=== PATIENT | male | born 1935 | race Hispanic/Latino ===

== ENCOUNTER 2021-10-24 10:07 | Inpatient (IN) | payer MEDICARE ==
[~2021-10-24] VITALS: Ht 177.8 cm; Wt 84.8 kg
[2021-10-24] MEDS: SODIUM CHLORIDE 0.9% 1000ML 1,000 ML IV SCH ×2 (01:30→14:01)
[2021-10-24 11:20] LABS: BASOPHILS % 0.1 % (0.0-1.0); HEMATOCRIT 44.9 % (38.2-49.6); HEMOGLOBIN 14.7 g/dL (14.0-18.0); LYMPHOCYTES # (AUTO) 0.5 (1.0-3.2); LYMPHOCYTES % 5.9 % (18.0-39.1); MEAN CORPUSCULAR HEMOGLOBIN 28.3 pg (28-32); MEAN CORPUSCULAR HGB CONC 32.7 g/dL (31-35); MEAN CORPUSCULAR VOLUME 86.5 fL (81-99); MONOCYTES # (AUTO) 0.4 (0.2-0.8); MONOCYTES % 4.6 % (4.4-11.3); NEUTROPHILS # (AUTO) 7.5 (2.1-6.9); NEUTROPHILS % 88.5 % (38.7-80.0); PLATELET COUNT 129 x10e3/uL (140-360); RED BLOOD COUNT 5.19 x10e6/uL (4.3-5.7); RED CELL DISTRIBUTION WIDTH 15.4 % (11.7-14.4)
[2021-10-24] MEDS ORDERED: FUROSEMIDE40 MG PO (11:31)
[2021-10-24] MEDS ORDERED: JANUVIA100 MG PO (11:31)
[2021-10-24] MEDS ORDERED: DOXAZOSIN MESYLA2 MG PO (11:31)
[2021-10-24] MEDS ORDERED: POTASSIUM CITR10 MEQ PO (11:31)
[2021-10-24] MEDS ORDERED: LOVASTATIN20 MG PO (11:31)
[2021-10-24] MEDS ORDERED: PIOGLITAZONE HC15 MG PO (11:31)
[2021-10-24] MEDS ORDERED: GLIPIZIDE5 MG PO (11:31)
[2021-10-24] MEDS ORDERED: FINASTERIDE5 MG PO (11:31)
[2021-10-24] MEDS ORDERED: ALLOPURINOL100 MG PO (11:31)
[2021-10-24 11:33] LABS: ALBUMIN 3.6 g/dL (3.5-5.0); ALBUMIN/GLOBULIN RATIO 0.9 (0.8-2.0); ANION GAP 23.4 mmol/L (8-16); CALCIUM 9.1 mg/dL (8.4-10.2); CREATININE, SERUM 1.62 mg/dL (0.72-1.25); POTASSIUM 3.4 mmol/L (3.5-5.1)
[2021-10-24] MEDS ORDERED: SODIUM CHLORIDE 0.9% 1000ML 1,000 ML IV STA (11:41)
[2021-10-24] MEDS ORDERED: CEFEPIME 2 GM in SODIUM CHLORIDE 0.9% 100 ML IV ONE (11:45)
[2021-10-24] MEDS ORDERED: SODIUM CHLORIDE 0.9% 500ML 500 ML IV ONE (11:45)
[2021-10-24 11:52] LABS: CLARITY,URINE CLEAR (CLEAR); COLOR,URINE YELLOW (YELLOW); LEUKOCYTE ESTERASE ,URINE NEGATIVE (NEGATIVE); NITRITE,URINE NEGATIVE (NEGATIVE); PROTEIN,URINE DIPSTICK 1+ (NEGATIVE)
[2021-10-24 11:53] LABS: KETONES,URINE TRACE (NEGATIVE); URINE UROBILINOGEN 0.2 mg/dL (0.2 - 1)
[2021-10-24 11:54] LABS: BACTERIA,URINE FEW /HPF; RBC,URINE 0-5 /HPF (0-5); WBC,URINE (MAN) 0-5 /HPF (0-5)
[2021-10-24 12:12] LABS: CREATINE KINASE MB 3.3 ng/mL (0-5.0)
[2021-10-24] MEDS ORDERED: ENOXAPARIN SOD INJ 40 MG/0.4 ML SYR SC STA (13:00)
[2021-10-24] MEDS ORDERED: ASPIRIN 81 MG CHEW TAB PO ONE (13:00)
[2021-10-24] MEDS ORDERED: ONDANSETRON HCL INJ 2MG/ML 2ML 2 MG/ML VIAL IV PRN (13:15)
[2021-10-24] MEDS: DEXAMETHASONE SOD PHOS 10 MG/1 ML VIAL IV SCH (13:15)
[2021-10-24] MEDS ORDERED: DEXTROSE 50% SYRINGE 50 ML IV PRN (13:15)
[2021-10-24] MEDS: ASPIRIN 81 MG ENTERIC COATED PO SCH (13:15)
[2021-10-24] MEDS: ASCORBIC ACID 500 MG TAB PO SCH (13:15)
[2021-10-24] MEDS: FAMOTIDINE 20 MG/2 ML VIAL IV SCH (13:33)
[2021-10-24 13:39] LABS: ABG HCO3 18 mmol/L (22-26); ABG PCO2 27 mmHg (35-45); ABG PH 7.43 (7.35-7.45); ABG PO2 61 mmHg (80-105); ABG TCO2 19
[2021-10-24] MEDS: INSULIN LISPRO 100 UNIT/1 ML 3ML VIAL SQ SCH ×5 (14:08→20:59)
[2021-10-24 17:23] LABS: CREATINE KINASE MB 3.4 ng/mL (0-5.0)
[2021-10-24] MEDS: ACETAMINOPHEN 325 MG TAB PO PRN (18:28)
[2021-10-24] MEDS: CEFEPIME 1 GM in SODIUM CHLORIDE 0.9% 50ML 50 ML IV SCH (20:45)
[2021-10-24] MEDS ORDERED: POTASSIUM CHLORIDE 20 MEQ TAB CR PO STA (21:39)
[2021-10-24] MEDS ORDERED: THIAMINE HCL 100 MG TAB PO ONE (21:45)
[2021-10-24] MEDS ORDERED: HYDRALAZINE HCL 20 MG/ML VIAL IV PRN (21:45)
[2021-10-24] MEDS ORDERED: MELATONIN 3 MG TAB PO PRN (21:45)
[2021-10-25 00:01] LABS: CREATINE KINASE MB 3.1 ng/mL (0-5.0)
[2021-10-25] MEDS: FAMOTIDINE 20 MG/2 ML VIAL IV SCH ×2 (01:30→14:30)
[2021-10-25 05:32] LABS: BASOPHILS % 0.1 % (0.0-1.0); LYMPHOCYTES # (AUTO) 0.7 (1.0-3.2); MEAN CORPUSCULAR HEMOGLOBIN 28.1 pg (28-32); MEAN CORPUSCULAR HGB CONC 32.5 g/dL (31-35); MEAN CORPUSCULAR VOLUME 86.4 fL (81-99); MONOCYTES # (AUTO) 0.3 (0.2-0.8); MONOCYTES % 2.3 % (4.4-11.3); NEUTROPHILS # (AUTO) 9.9 (2.1-6.9); NEUTROPHILS % 90.8 % (38.7-80.0); PLATELET COUNT 135 x10e3/uL (140-360); RED BLOOD COUNT 4.63 x10e6/uL (4.3-5.7); RED CELL DISTRIBUTION WIDTH 15.8 % (11.7-14.4)
[2021-10-25 06:42] LABS: ALBUMIN/GLOBULIN RATIO 0.8 (0.8-2.0); ANION GAP 16.3 mmol/L (8-16); CALCIUM 8.7 mg/dL (8.4-10.2); CHOL/HDL RATIO 4.1 (3.9-4.7); CREATININE, SERUM 1.17 mg/dL (0.72-1.25); POTASSIUM 3.3 mmol/L (3.5-5.1)
[2021-10-25 07:13] LABS: CREATINE KINASE MB 3.5 ng/mL (0-5.0)
[2021-10-25 07:29] LABS: MAGNESIUM 1.9 MG/DL (1.3-2.1); PHOSPHORUS 2.3 MG/DL (2.3-4.7)
[2021-10-25] MEDS: INSULIN LISPRO 100 UNIT/1 ML 3ML VIAL SQ SCH ×7 (07:30→21:00)
[2021-10-25] MEDS: SITAGLIPTIN 100 MG TAB PO SCH (08:08)
[2021-10-25] MEDS: CEFEPIME 1 GM in SODIUM CHLORIDE 0.9% 50ML 50 ML IV SCH ×2 (08:08→21:11)
[2021-10-25] MEDS: DEXAMETHASONE SOD PHOS 10 MG/1 ML VIAL IV SCH (08:08)
[2021-10-25] MEDS: DOCUSATE SODIUM 100 MG CAP PO SCH ×2 (08:08→17:19)
[2021-10-25] MEDS: MULTIVITAMINS/MINERALS TAB PO SCH (08:08)
[2021-10-25] MEDS: ACETAMINOPHEN 325 MG TAB PO PRN (08:09)
[2021-10-25] MEDS: ASCORBIC ACID 500 MG TAB PO SCH ×2 (08:09→17:19)
[2021-10-25] MEDS: FINASTERIDE 5 MG TAB PO SCH (08:09)
[2021-10-25] MEDS: ZINC SULFATE 50 MG CAP PO SCH (08:46)
[2021-10-25] MEDS ORDERED: FUROSEMIDE 40 MG TAB PO SCH (09:00)
[2021-10-25] MEDS ORDERED: REMDESIVIR 100MG 200 MG in SODIUM CHLORIDE 0.9% 100 ML IV ONE (09:00)
[2021-10-25] MEDS ORDERED: PIOGLITAZONE HCL 15 MG TAB PO SCH (09:00)
[2021-10-25] MEDS: POTASSIUM CITRATE ER 10 MEQ TAB PO SCH (09:26)
[2021-10-25] MEDS: DOXAZOSIN MESYLATE 2 MG TAB PO SCH (09:26)
[2021-10-25 09:38] LABS: FERRITIN 3521.88 ng/mL (21.81-274.66)
[2021-10-25] MEDS ORDERED: ENOXAPARIN SOD INJ 40 MG/0.4 ML SYR SC SCH (17:00)
[2021-10-25] MEDS: ENOXAPARIN SOD INJ 40 MG/0.4 ML SYR SC SCH (17:19)
[2021-10-25 17:56] LABS: CREATINE KINASE MB 9.2 ng/mL (0-5.0)
[2021-10-25 18:35] VITALS: BP 128/54
[2021-10-25 19:00] VITALS: BP 125/53
[2021-10-25] MEDS ORDERED: SODIUM CHLORIDE 0.9% 1000ML 1,000 ML ONE (19:48)
[2021-10-25 20:00] VITALS: BP 133/59
[2021-10-25] MEDS: SIMVASTATIN 20 MG TAB PO SCH (21:00)
[2021-10-25 22:00] VITALS: BP 130/55
[2021-10-26] VITALS (10 sets, daily range): BP systolic 104–149; BP diastolic 53–70
[2021-10-26] MEDS: FAMOTIDINE 20 MG/2 ML VIAL IV SCH ×2 (01:15→13:20)
[2021-10-26 06:50] LABS: BASOPHILS % 0.1 % (0.0-1.0); HEMATOCRIT 36.9 % (38.2-49.6); LYMPHOCYTES # (AUTO) 0.5 (1.0-3.2); LYMPHOCYTES % 4.3 % (18.0-39.1); MEAN CORPUSCULAR HEMOGLOBIN 28.3 pg (28-32); MEAN CORPUSCULAR HGB CONC 32.5 g/dL (31-35); MONOCYTES # (AUTO) 0.4 (0.2-0.8); MONOCYTES % 2.9 % (4.4-11.3); NEUTROPHILS # (AUTO) 11.4 (2.1-6.9); NEUTROPHILS % 91.8 % (38.7-80.0); PLATELET COUNT 137 x10e3/uL (140-360); RED BLOOD COUNT 4.24 x10e6/uL (4.3-5.7); RED CELL DISTRIBUTION WIDTH 15.9 % (11.7-14.4)
[2021-10-26 07:30] LABS: ALBUMIN 2.6 g/dL (3.5-5.0); ALBUMIN/GLOBULIN RATIO 0.8 (0.8-2.0); ANION GAP 16.9 mmol/L (8-16); CREATININE, SERUM 1.19 mg/dL (0.72-1.25)
[2021-10-26 07:33] LABS: POTASSIUM 2.9 mmol/L (3.5-5.1)
[2021-10-26 07:48] LABS: CALCIUM 8.2 mg/dL (8.4-10.2)
[2021-10-26] MEDS: SITAGLIPTIN 100 MG TAB PO SCH (09:00)
[2021-10-26] MEDS: REMDESIVIR 100MG 100 MG in SODIUM CHLORIDE 0.9% 100 ML IV SCH (09:58)
[2021-10-26] MEDS: CEFEPIME 1 GM in SODIUM CHLORIDE 0.9% 50ML 50 ML IV SCH ×2 (09:58→21:00)
[2021-10-26] MEDS: DOXAZOSIN MESYLATE 2 MG TAB PO SCH (09:58)
[2021-10-26] MEDS: ASPIRIN 81 MG ENTERIC COATED PO SCH (09:58)
[2021-10-26] MEDS: DEXAMETHASONE SOD PHOS 10 MG/1 ML VIAL IV SCH (09:58)
[2021-10-26] MEDS: DOCUSATE SODIUM 100 MG CAP PO SCH ×2 (09:58→17:35)
[2021-10-26] MEDS: FINASTERIDE 5 MG TAB PO SCH (09:59)
[2021-10-26] MEDS: POTASSIUM CITRATE ER 10 MEQ TAB PO SCH (09:59)
[2021-10-26] MEDS: MULTIVITAMINS/MINERALS TAB PO SCH (09:59)
[2021-10-26] MEDS: ZINC SULFATE 50 MG CAP PO SCH (09:59)
[2021-10-26] MEDS: ASCORBIC ACID 500 MG TAB PO SCH ×2 (09:59→17:35)
[2021-10-26] MEDS: SPIRONOLACTONE 25 MG TAB PO SCH (10:01)
[2021-10-26] MEDS: POTASSIUM CHLORIDE 20 MEQ TAB CR PO SCH ×2 (10:01→19:05)
[2021-10-26] MEDS: INSULIN LISPRO 100 UNIT/1 ML 3ML VIAL SQ SCH ×8 (10:02→21:00)
[2021-10-26] MEDS: ENOXAPARIN SOD INJ 40 MG/0.4 ML SYR SC SCH (17:35)
[2021-10-26] MEDS ORDERED: POTASSIUM CHLORIDE 20 MEQ TAB CR PO ONE (18:00)
[2021-10-26] MEDS: SIMVASTATIN 20 MG TAB PO SCH (21:00)
[2021-10-27] VITALS (11 sets, daily range): BP systolic 115–132; BP diastolic 55–77
[2021-10-27] MEDS: FAMOTIDINE 20 MG/2 ML VIAL IV SCH ×2 (01:50→13:15)
[2021-10-27 06:19] LABS: ALBUMIN 2.5 g/dL (3.5-5.0); ALBUMIN/GLOBULIN RATIO 0.8 (0.8-2.0); ANION GAP 17.8 mmol/L (8-16); CALCIUM 8.5 mg/dL (8.4-10.2); CREATININE, SERUM 1.14 mg/dL (0.72-1.25); POTASSIUM 3.8 mmol/L (3.5-5.1)
[2021-10-27] MEDS: INSULIN LISPRO 100 UNIT/1 ML 3ML VIAL SQ SCH ×8 (07:30→23:00)
[2021-10-27] MEDS: AZITHROMYCIN 250 MG TAB PO SCH (11:22)
[2021-10-27] MEDS: CEFEPIME 1 GM in SODIUM CHLORIDE 0.9% 50ML 50 ML IV SCH ×2 (11:23→21:57)
[2021-10-27] MEDS: DEXAMETHASONE SOD PHOS 10 MG/1 ML VIAL IV SCH (11:23)
[2021-10-27] MEDS: DOXAZOSIN MESYLATE 2 MG TAB PO SCH (11:24)
[2021-10-27] MEDS: CLOPIDOGREL BISULFATE 75 MG TAB PO SCH (11:25)
[2021-10-27] MEDS: DOCUSATE SODIUM 100 MG CAP PO SCH ×2 (11:25→18:34)
[2021-10-27] MEDS: ASCORBIC ACID 500 MG TAB PO SCH ×2 (11:25→18:34)
[2021-10-27] MEDS: ASPIRIN 81 MG ENTERIC COATED PO SCH (11:25)
[2021-10-27] MEDS: FINASTERIDE 5 MG TAB PO SCH (11:26)
[2021-10-27] MEDS: POTASSIUM CITRATE ER 10 MEQ TAB PO SCH (11:43)
[2021-10-27] MEDS: MULTIVITAMINS/MINERALS TAB PO SCH (11:43)
[2021-10-27] MEDS: ZINC SULFATE 50 MG CAP PO SCH (11:43)
[2021-10-27] MEDS: REMDESIVIR 100MG 100 MG in SODIUM CHLORIDE 0.9% 100 ML IV SCH (11:44)
[2021-10-27] MEDS: SITAGLIPTIN 100 MG TAB PO SCH (11:49)
[2021-10-27] MEDS: SPIRONOLACTONE 25 MG TAB PO SCH (11:50)
[2021-10-27] MEDS: ENOXAPARIN SOD INJ 40 MG/0.4 ML SYR SC SCH (18:34)
[2021-10-27] MEDS: SIMVASTATIN 20 MG TAB PO SCH (21:32)
[2021-10-27] MEDS: ACETAMINOPHEN 325 MG TAB PO PRN (23:20)
[2021-10-28] VITALS (8 sets, daily range): BP systolic 102–134; BP diastolic 55–81
[2021-10-28] MEDS: FAMOTIDINE 20 MG/2 ML VIAL IV SCH ×2 (01:36→15:07)
[2021-10-28 07:14] LABS: BASOPHILS % 0.2 % (0.0-1.0); HEMATOCRIT 37.8 % (38.2-49.6); HEMOGLOBIN 12.3 g/dL (14.0-18.0); LYMPHOCYTES # (AUTO) 0.4 (1.0-3.2); LYMPHOCYTES % 3.3 % (18.0-39.1); MEAN CORPUSCULAR HEMOGLOBIN 28.5 pg (28-32); MEAN CORPUSCULAR HGB CONC 32.5 g/dL (31-35); MEAN CORPUSCULAR VOLUME 87.7 fL (81-99); MONOCYTES # (AUTO) 0.4 (0.2-0.8); MONOCYTES % 3.6 % (4.4-11.3); NEUTROPHILS % 90.4 % (38.7-80.0); PLATELET COUNT 165 x10e3/uL (140-360); RED BLOOD COUNT 4.31 x10e6/uL (4.3-5.7); RED CELL DISTRIBUTION WIDTH 16.1 % (11.7-14.4)
[2021-10-28] MEDS: INSULIN LISPRO 100 UNIT/1 ML 3ML VIAL SQ SCH ×8 (07:30→21:00)
[2021-10-28 07:38] LABS: ALBUMIN 2.7 g/dL (3.5-5.0); ALBUMIN/GLOBULIN RATIO 0.9 (0.8-2.0); ANION GAP 13.6 mmol/L (8-16); CALCIUM 8.4 mg/dL (8.4-10.2); CREATININE, SERUM 1.18 mg/dL (0.72-1.25); POTASSIUM 3.6 mmol/L (3.5-5.1)
[2021-10-28] MEDS: DOCUSATE SODIUM 100 MG CAP PO SCH ×2 (09:00→17:05)
[2021-10-28] MEDS: SPIRONOLACTONE 25 MG TAB PO SCH (09:33)
[2021-10-28] MEDS: DEXAMETHASONE SOD PHOS 10 MG/1 ML VIAL IV SCH (09:33)
[2021-10-28] MEDS: REMDESIVIR 100MG 100 MG in SODIUM CHLORIDE 0.9% 100 ML IV SCH (09:33)
[2021-10-28] MEDS: CEFEPIME 1 GM in SODIUM CHLORIDE 0.9% 50ML 50 ML IV SCH ×2 (09:33→21:14)
[2021-10-28] MEDS: FINASTERIDE 5 MG TAB PO SCH (09:34)
[2021-10-28] MEDS: CLOPIDOGREL BISULFATE 75 MG TAB PO SCH (09:34)
[2021-10-28] MEDS ORDERED: SODIUM CHLORIDE 0.9% 100 ML ONE (09:37)
[2021-10-28] MEDS: FUROSEMIDE 40 MG TAB PO SCH (09:57)
[2021-10-28] MEDS: ASPIRIN 81 MG ENTERIC COATED PO SCH (09:57)
[2021-10-28] MEDS: SITAGLIPTIN 100 MG TAB PO SCH (09:58)
[2021-10-28] MEDS: POTASSIUM CITRATE ER 10 MEQ TAB PO SCH (09:58)
[2021-10-28] MEDS: AZITHROMYCIN 250 MG TAB PO SCH (09:58)
[2021-10-28] MEDS: DOXAZOSIN MESYLATE 2 MG TAB PO SCH (10:15)
[2021-10-28] MEDS: MULTIVITAMINS/MINERALS TAB PO SCH (14:35)
[2021-10-28] MEDS: ASCORBIC ACID 500 MG TAB PO SCH ×2 (14:35→17:05)
[2021-10-28] MEDS: ZINC SULFATE 50 MG CAP PO SCH (14:35)
[2021-10-28] MEDS ORDERED: POTASSIUM CHLORIDE 20MEQ/100ML 100 ML IV ONE (15:00)
[2021-10-28] MEDS: ENOXAPARIN SOD INJ 40 MG/0.4 ML SYR SC SCH (17:05)
[2021-10-28] MEDS: SIMVASTATIN 20 MG TAB PO SCH (21:14)
[2021-10-29] VITALS (14 sets, daily range): BP systolic 93–149; BP diastolic 52–79
[2021-10-29] MEDS: FAMOTIDINE 20 MG/2 ML VIAL IV SCH ×2 (02:18→13:53)
[2021-10-29 07:48] LABS: BASOPHILS % 0.3 % (0.0-1.0); EOSINOPHILS % 0.1 % (0.0-6.0); HEMATOCRIT 42.1 % (38.2-49.6); HEMOGLOBIN 13.5 g/dL (14.0-18.0); LYMPHOCYTES # (AUTO) 1.6 (1.0-3.2); LYMPHOCYTES % 11.6 % (18.0-39.1); MEAN CORPUSCULAR HEMOGLOBIN 28.6 pg (28-32); MEAN CORPUSCULAR HGB CONC 32.1 g/dL (31-35); MEAN CORPUSCULAR VOLUME 89.2 fL (81-99); MONOCYTES # (AUTO) 0.5 (0.2-0.8); MONOCYTES % 3.4 % (4.4-11.3); NEUTROPHILS # (AUTO) 11.5 (2.1-6.9); NEUTROPHILS % 81.2 % (38.7-80.0); PLATELET COUNT 166 x10e3/uL (140-360); RED BLOOD COUNT 4.72 x10e6/uL (4.3-5.7)
[2021-10-29 08:11] LABS: ALBUMIN 2.7 g/dL (3.5-5.0); ALBUMIN/GLOBULIN RATIO 0.8 (0.8-2.0); ANION GAP 18.7 mmol/L (8-16); CALCIUM 8.3 mg/dL (8.4-10.2); CREATININE, SERUM 1.11 mg/dL (0.72-1.25); POTASSIUM 3.7 mmol/L (3.5-5.1)
[2021-10-29] MEDS: CEFEPIME 1 GM in SODIUM CHLORIDE 0.9% 50ML 50 ML IV SCH ×2 (09:18→21:52)
[2021-10-29] MEDS: ASPIRIN 81 MG ENTERIC COATED PO SCH (09:18)
[2021-10-29] MEDS: CLOPIDOGREL BISULFATE 75 MG TAB PO SCH (09:18)
[2021-10-29] MEDS: MULTIVITAMINS/MINERALS TAB PO SCH (09:18)
[2021-10-29] MEDS: SPIRONOLACTONE 25 MG TAB PO SCH (09:18)
[2021-10-29] MEDS: DEXAMETHASONE SOD PHOS 10 MG/1 ML VIAL IV SCH (09:18)
[2021-10-29] MEDS: DOXAZOSIN MESYLATE 2 MG TAB PO SCH (09:18)
[2021-10-29] MEDS: SITAGLIPTIN 100 MG TAB PO SCH (09:18)
[2021-10-29] MEDS: ASCORBIC ACID 500 MG TAB PO SCH ×2 (09:18→16:48)
[2021-10-29] MEDS: AZITHROMYCIN 250 MG TAB PO SCH (09:18)
[2021-10-29] MEDS: POTASSIUM CITRATE ER 10 MEQ TAB PO SCH (09:18)
[2021-10-29] MEDS: DOCUSATE SODIUM 100 MG CAP PO SCH ×2 (09:18→16:48)
[2021-10-29] MEDS: FUROSEMIDE 40 MG TAB PO SCH (09:18)
[2021-10-29] MEDS: REMDESIVIR 100MG 100 MG in SODIUM CHLORIDE 0.9% 100 ML IV SCH (09:18)
[2021-10-29] MEDS: ZINC SULFATE 50 MG CAP PO SCH (09:18)
[2021-10-29] MEDS: FINASTERIDE 5 MG TAB PO SCH (09:18)
[2021-10-29] MEDS: INSULIN LISPRO 100 UNIT/1 ML 3ML VIAL SQ SCH ×8 (09:19→22:01)
[2021-10-29] MEDS: ENOXAPARIN SOD INJ 40 MG/0.4 ML SYR SC SCH (17:12)
[2021-10-30] VITALS (13 sets, daily range): BP systolic 87–137; BP diastolic 48–69
[2021-10-30] MEDS: FAMOTIDINE 20 MG/2 ML VIAL IV SCH ×2 (01:20→13:45)
[2021-10-30] MEDS: INSULIN LISPRO 100 UNIT/1 ML 3ML VIAL SQ SCH ×8 (07:30→21:36)
[2021-10-30] MEDS: SPIRONOLACTONE 25 MG TAB PO SCH (08:46)
[2021-10-30] MEDS: DOCUSATE SODIUM 100 MG CAP PO SCH ×2 (08:46→16:14)
[2021-10-30] MEDS: ASPIRIN 81 MG ENTERIC COATED PO SCH (08:46)
[2021-10-30] MEDS: SITAGLIPTIN 100 MG TAB PO SCH (08:46)
[2021-10-30] MEDS: DOXAZOSIN MESYLATE 2 MG TAB PO SCH (08:46)
[2021-10-30] MEDS: MULTIVITAMINS/MINERALS TAB PO SCH (08:47)
[2021-10-30] MEDS: FINASTERIDE 5 MG TAB PO SCH (08:47)
[2021-10-30] MEDS: POTASSIUM CITRATE ER 10 MEQ TAB PO SCH (08:47)
[2021-10-30] MEDS: ZINC SULFATE 50 MG CAP PO SCH (08:47)
[2021-10-30] MEDS: CLOPIDOGREL BISULFATE 75 MG TAB PO SCH (08:47)
[2021-10-30] MEDS: AZITHROMYCIN 250 MG TAB PO SCH (08:47)
[2021-10-30] MEDS: ASCORBIC ACID 500 MG TAB PO SCH ×2 (08:47→16:14)
[2021-10-30 09:06] LABS: BASOPHILS % 0.3 % (0.0-1.0); HEMATOCRIT 38.1 % (38.2-49.6); HEMOGLOBIN 12.4 g/dL (14.0-18.0); LYMPHOCYTES # (AUTO) 0.5 (1.0-3.2); LYMPHOCYTES % 4.2 % (18.0-39.1); MEAN CORPUSCULAR HEMOGLOBIN 28.2 pg (28-32); MEAN CORPUSCULAR HGB CONC 32.5 g/dL (31-35); MEAN CORPUSCULAR VOLUME 86.6 fL (81-99); MONOCYTES # (AUTO) 0.2 (0.2-0.8); MONOCYTES % 2.1 % (4.4-11.3); NEUTROPHILS # (AUTO) 9.7 (2.1-6.9); NEUTROPHILS % 89.2 % (38.7-80.0); PLATELET COUNT 162 x10e3/uL (140-360); RED CELL DISTRIBUTION WIDTH 15.9 % (11.7-14.4)
[2021-10-30 09:32] LABS: ALBUMIN 2.6 g/dL (3.5-5.0); ALBUMIN/GLOBULIN RATIO 0.8 (0.8-2.0); ANION GAP 14.9 mmol/L (8-16); CREATININE, SERUM 1.37 mg/dL (0.72-1.25); POTASSIUM 3.9 mmol/L (3.5-5.1)
[2021-10-30] MEDS: REMDESIVIR 100MG 100 MG in SODIUM CHLORIDE 0.9% 100 ML IV SCH (09:50)
[2021-10-30] MEDS: CEFEPIME 1 GM in SODIUM CHLORIDE 0.9% 50ML 50 ML IV SCH ×2 (09:50→20:27)
[2021-10-30] MEDS: DEXAMETHASONE SOD PHOS 10 MG/1 ML VIAL IV SCH (09:50)
[2021-10-30] MEDS: ENOXAPARIN SOD INJ 40 MG/0.4 ML SYR SC SCH (16:44)
[2021-10-30] MEDS: DEXMEDETOMIDINE 400MCG/NS100ML 100 ML IV PRN (23:40)
[2021-10-31] VITALS (9 sets, daily range): BP systolic 96–107; BP diastolic 49–66
[2021-10-31] MEDS: FAMOTIDINE 20 MG/2 ML VIAL IV SCH ×2 (01:02→13:15)
[2021-10-31] MEDS: DEXMEDETOMIDINE 400MCG/NS100ML 100 ML IV PRN ×2 (07:08→20:55)
[2021-10-31] MEDS: INSULIN LISPRO 100 UNIT/1 ML 3ML VIAL SQ SCH ×8 (07:30→21:35)
[2021-10-31] MEDS: REMDESIVIR 100MG 100 MG in SODIUM CHLORIDE 0.9% 100 ML IV SCH (08:08)
[2021-10-31] MEDS: CEFEPIME 1 GM in SODIUM CHLORIDE 0.9% 50ML 50 ML IV SCH ×2 (08:08→20:53)
[2021-10-31] MEDS: DOCUSATE SODIUM 100 MG CAP PO SCH ×2 (08:17→17:00)
[2021-10-31] MEDS: ASPIRIN 81 MG ENTERIC COATED PO SCH (08:17)
[2021-10-31] MEDS: DOXAZOSIN MESYLATE 2 MG TAB PO SCH (08:17)
[2021-10-31] MEDS: SPIRONOLACTONE 25 MG TAB PO SCH (08:17)
[2021-10-31] MEDS: MULTIVITAMINS/MINERALS TAB PO SCH (08:18)
[2021-10-31] MEDS: AZITHROMYCIN 250 MG TAB PO SCH (08:18)
[2021-10-31] MEDS: CLOPIDOGREL BISULFATE 75 MG TAB PO SCH (08:18)
[2021-10-31] MEDS: SITAGLIPTIN 100 MG TAB PO SCH (08:18)
[2021-10-31] MEDS: ASCORBIC ACID 500 MG TAB PO SCH ×2 (08:18→17:00)
[2021-10-31] MEDS: ZINC SULFATE 50 MG CAP PO SCH (08:18)
[2021-10-31] MEDS: FINASTERIDE 5 MG TAB PO SCH (08:18)
[2021-10-31] MEDS: POTASSIUM CITRATE ER 10 MEQ TAB PO SCH (08:18)
[2021-10-31] MEDS: ENOXAPARIN SOD INJ 40 MG/0.4 ML SYR SC SCH (17:33)
[2021-11-01] VITALS (12 sets, daily range): BP systolic 92–115; BP diastolic 48–96
[2021-11-01] MEDS: FAMOTIDINE 20 MG/2 ML VIAL IV SCH ×2 (02:00→14:47)
[2021-11-01] MEDS: DEXMEDETOMIDINE 400MCG/NS100ML 100 ML IV PRN ×4 (02:18→20:34)
[2021-11-01 06:45] LABS: ANION GAP 13.5 mmol/L (8-16); CREATININE, SERUM 0.97 mg/dL (0.72-1.25); POTASSIUM 3.5 mmol/L (3.5-5.1)
[2021-11-01] MEDS: INSULIN LISPRO 100 UNIT/1 ML 3ML VIAL SQ SCH ×8 (07:30→20:34)
[2021-11-01] MEDS: SITAGLIPTIN 100 MG TAB PO SCH (09:00)
[2021-11-01] MEDS: MULTIVITAMINS/MINERALS TAB PO SCH (09:00)
[2021-11-01] MEDS: AZITHROMYCIN 250 MG TAB PO SCH (09:00)
[2021-11-01] MEDS: REMDESIVIR 100MG 100 MG in SODIUM CHLORIDE 0.9% 100 ML IV SCH ×2 (09:00→12:42)
[2021-11-01] MEDS: CLOPIDOGREL BISULFATE 75 MG TAB PO SCH (09:00)
[2021-11-01] MEDS: ASCORBIC ACID 500 MG TAB PO SCH ×2 (09:00→17:00)
[2021-11-01] MEDS: POTASSIUM CITRATE ER 10 MEQ TAB PO SCH (09:00)
[2021-11-01] MEDS: DOCUSATE SODIUM 100 MG CAP PO SCH ×2 (09:00→17:00)
[2021-11-01] MEDS: ZINC SULFATE 50 MG CAP PO SCH (09:00)
[2021-11-01] MEDS: FINASTERIDE 5 MG TAB PO SCH (09:00)
[2021-11-01] MEDS: DOXAZOSIN MESYLATE 2 MG TAB PO SCH (09:00)
[2021-11-01] MEDS: ASPIRIN 81 MG ENTERIC COATED PO SCH (09:00)
[2021-11-01] MEDS: CEFEPIME 1 GM in SODIUM CHLORIDE 0.9% 50ML 50 ML IV SCH ×2 (09:55→20:28)
[2021-11-02] MEDS: DEXMEDETOMIDINE 400MCG/NS100ML 100 ML IV PRN ×4 (00:01→11:10)
[2021-11-02 00:12] VITALS: BP 92/58
[2021-11-02] MEDS: FAMOTIDINE 20 MG/2 ML VIAL IV SCH (03:16)
[2021-11-02 04:04] VITALS: BP 112/53
[2021-11-02 05:31] LABS: BASOPHILS % 0.1 % (0.0-1.0); EOSINOPHILS % 0.1 % (0.0-6.0); HEMATOCRIT 41.4 % (38.2-49.6); HEMOGLOBIN 12.7 g/dL (14.0-18.0); LYMPHOCYTES # (AUTO) 0.3 (1.0-3.2); LYMPHOCYTES % 2.3 % (18.0-39.1); MEAN CORPUSCULAR HEMOGLOBIN 28.3 pg (28-32); MEAN CORPUSCULAR HGB CONC 30.7 g/dL (31-35); MEAN CORPUSCULAR VOLUME 92.2 fL (81-99); MONOCYTES # (AUTO) 0.3 (0.2-0.8); MONOCYTES % 1.8 % (4.4-11.3); NEUTROPHILS # (AUTO) 13.3 (2.1-6.9); RED BLOOD COUNT 4.49 x10e6/uL (4.3-5.7); RED CELL DISTRIBUTION WIDTH 17.1 % (11.7-14.4)
[2021-11-02 05:34] LABS: PLATELET COUNT 85 x10e3/uL (140-360)
[2021-11-02 06:05] LABS: ALBUMIN/GLOBULIN RATIO 0.6 (0.8-2.0); ANION GAP 16.7 mmol/L (8-16); CALCIUM 8.1 mg/dL (8.4-10.2); CREATININE, SERUM 1.32 mg/dL (0.72-1.25); POTASSIUM 3.7 mmol/L (3.5-5.1)
[2021-11-02 06:27] VITALS: BP 112/49
[2021-11-02] MEDS: INSULIN LISPRO 100 UNIT/1 ML 3ML VIAL SQ SCH ×2 (07:30)
[2021-11-02 08:25] VITALS: BP 104/51
[2021-11-02 08:34] VITALS: BP 104/51
[2021-11-02] MEDS: DOCUSATE SODIUM 100 MG CAP PO SCH (09:00)
[2021-11-02] MEDS: SITAGLIPTIN 100 MG TAB PO SCH (09:00)
[2021-11-02] MEDS: DOXAZOSIN MESYLATE 2 MG TAB PO SCH (09:00)
[2021-11-02] MEDS: ASPIRIN 81 MG ENTERIC COATED PO SCH (09:10)
[2021-11-02] MEDS: CEFEPIME 1 GM in SODIUM CHLORIDE 0.9% 50ML 50 ML IV SCH (09:10)
[2021-11-02] MEDS: MULTIVITAMINS/MINERALS TAB PO SCH (09:13)
[2021-11-02] MEDS: ASCORBIC ACID 500 MG TAB PO SCH (09:13)
[2021-11-02] MEDS: FINASTERIDE 5 MG TAB PO SCH (09:13)
[2021-11-02] MEDS: CLOPIDOGREL BISULFATE 75 MG TAB PO SCH (09:13)
[2021-11-02] MEDS: AZITHROMYCIN 250 MG TAB PO SCH (09:13)
[2021-11-02] MEDS: POTASSIUM CITRATE ER 10 MEQ TAB PO SCH (09:13)
[2021-11-02] MEDS: ZINC SULFATE 50 MG CAP PO SCH (09:13)
[2021-11-02] MEDS ORDERED: DEXTROSE 5% 1,000 ML IV SCH (09:30)
[2021-11-02] MEDS: REMDESIVIR 100MG 100 MG in SODIUM CHLORIDE 0.9% 100 ML IV SCH (09:41)
== END 2021-11-02 17:14 | disposition expired | DRG 177 ==
LOC: ER 10:10 → ERHOLD 13:15 → IMCU 10-25 18:29
PROVIDERS: ADMIT Internal Medicine; ATTEND Internal Medicine
PROC: 3E0333Z Introduction of Anti-inflammatory into Peripheral Vein, Percutaneous Approach (ICD-10-PCS; 2021-10-24)
PROC: 5A0935A Assistance with Respiratory Ventilation, Less than 24 Consecutive Hours, High Flow/Velocity Cannula (ICD-10-PCS; principal; 2021-10-25)
PROC: XW033E5 Introduction of Remdesivir Anti-infective into Peripheral Vein, Percutaneous Approach, New Technology Group 5 (ICD-10-PCS; 2021-10-25)
PROC: 02HV33Z Insertion of Infusion Device into Superior Vena Cava, Percutaneous Approach (ICD-10-PCS; 2021-10-29)
DX: U07.1 COVID-19 (principal); J12.82 Pneumonia due to coronavirus disease 2019; J96.01 Acute respiratory failure with hypoxia; J15.9 Unspecified bacterial pneumonia; G93.41 Metabolic encephalopathy; I21.A1 Myocardial infarction type 2; I13.0 Hypertensive heart and chronic kidney disease with heart failure and stage 1 through stage 4 chronic kidney disease, or unspecified chronic kidney disease; N17.9 Acute kidney failure, unspecified; E87.2 Acidosis; I50.32 Chronic diastolic (congestive) heart failure; E87.0 Hyperosmolality and hypernatremia; E11.22 Type 2 diabetes mellitus with diabetic chronic kidney disease; F03.90 Unspecified dementia, unspecified severity, without behavioral disturbance, psychotic disturbance, mood disturbance, and anxiety; W19.XXXA Unspecified fall, initial encounter; Y92.019 Unspecified place in single-family (private) house as the place of occurrence of the external cause; S51.012A Laceration without foreign body of left elbow, initial encounter; I25.10 Atherosclerotic heart disease of native coronary artery without angina pectoris; S00.03XA Contusion of scalp, initial encounter; M10.9 Gout, unspecified; E78.00 Pure hypercholesterolemia, unspecified; K21.9 Gastro-esophageal reflux disease without esophagitis; E11.65 Type 2 diabetes mellitus with hyperglycemia; N18.30 Chronic kidney disease, stage 3 unspecified; D29.1 Benign neoplasm of prostate; E87.6 Hypokalemia; Z95.0 Presence of cardiac pacemaker; Z88.0 Allergy status to penicillin; Z79.84 Long term (current) use of oral hypoglycemic drugs; Z91.81 History of falling; Z66 Do not resuscitate
CPT/HCPCS: 36415; 36569; 36600; 70450; 71045; 71101; 72125; 72170; 80048; 80053; 80061; 81001; 82550; 82553; 82728; 82805; 82948; 83605; 83615; 83735; 84100; 84484; 85025; 86141; 87040; 87086; 93005; 93306; 94799; 96372; 99284; J0248; J0456; J0692; J1100; J1650; J2405; J3411; J3480; J7030; J7040; J7050; J7070; U0002